=== PATIENT | male | born 1935 | race Caucasian/White ===

== ENCOUNTER 2025-05-16 08:21 | Inpatient (IN) | payer MEDICARE, OTHER ==
[~2025-05-16] VITALS: Ht 167.6 cm; Wt 84.1 kg
[2025-05-16] MEDS ORDERED: ECOT81TA5 PO (08:49)
[2025-05-16] MEDS ORDERED: POTA1TAB22 PO (08:49)
[2025-05-16] MEDS ORDERED: FURO40TA2 PO (08:49)
[2025-05-16] MEDS ORDERED: ATOR40TA75 PO (08:49)
[2025-05-16] MEDS ORDERED: FINA5TAB2 PO (08:49)
[2025-05-16] MEDS ORDERED: TAMS1CAP17 PO (08:49)
[2025-05-16] MEDS ORDERED: PREG50CA87 PO (08:49)
[2025-05-16] MEDS ORDERED: LOSA50TA28 PO (08:49)
[2025-05-16] MEDS ORDERED: PANT20TA6 PO (08:49)
[2025-05-16 09:32] LABS: BASO # 0.0 10^3/uL (0.0-0.2); BASO % 0.2 % (0.0-1.0); EOS # 0.0 10^3/uL (0.0-0.5); EOS % 0.2 % (0.0-3.0); LYMPH # 0.8 10^3/uL (1.5-5.0); LYMPH % 12.5 % (24.0-44.0); MONO # 0.1 10^3/uL (0.0-0.8); MONO % 1.3 % (2.0-8.0); NEUTROPHILS # 5.1 10^3/uL (1.5-8.5); NEUTROPHILS % 84.1 % (36.0-66.0); PLATELET COUNT, AUTOMATED 157 10^3/uL (150-450)
[2025-05-16] MEDS: ONDANSETRON 4MG 2ML VIAL IV ONE (09:44)
[2025-05-16] MEDS: MORPHINE 4 MG/ML 1 ML VIAL IV PRN ×2 (09:44→20:31)
[2025-05-16] MEDS: NS (Normal Saline) 0.9% 1,000 ML IV SCH (09:44)
[2025-05-16 09:47] LABS: INR 1.1
[2025-05-16 10:04] LABS: CALCIUM LEVEL 7.4 MG/DL (8.3-10.6); CARBON DIOXIDE LEVEL 26.0 MMOL/L (20-31); CHLORIDE LEVEL 105.0 MMOL/L (98-107); CREATININE FOR GFR 0.98 MG/DL (0.70-1.30); GLOMERULAR FILTRATION RATE 74.2 (>35); POTASSIUM SERUM 3.5 MMOL/L (3.5-5.1); SODIUM LEVEL 143.0 MMOL/L (136-145)
[2025-05-16] MEDS ORDERED: GLUC500C37 PO (10:59)
[2025-05-16] MEDS ORDERED: POTA-150 PO (10:59)
[2025-05-16] MEDS ORDERED: RISA150P SQ (10:59)
[2025-05-16] MEDS ORDERED: CALC1TAB63 PO (10:59)
[2025-05-16] MEDS ORDERED: VESI5TAB2 PO (10:59)
[2025-05-16] MEDS ORDERED: MELATAB3 PO (10:59)
[2025-05-16] MEDS ORDERED: MULTTAB61 PO (10:59)
[2025-05-16] MEDS ORDERED: HOME MED LIST COMPLETE! XX SCH (11:00)
[2025-05-16] MEDS: ENOXAPARIN 40 MG/0.4 ML SYRINGE (J1650 PER 10MG) SC ONE (13:41)
[2025-05-16] MEDS: FINASTERIDE 5 MG TAB PO SCH (13:42)
[2025-05-16] MEDS: FUROSEMIDE 40 MG TAB PO SCH (13:42)
[2025-05-16] MEDS: LOSARTAN 50 MG TABLET PO SCH (13:43)
[2025-05-16] MEDS: ATORVASTATIN 20 MG TAB PO SCH (13:43)
[2025-05-16] MEDS: PREGABALIN 50 MG CAP PO SCH (13:50)
[2025-05-16] MEDS: POTASSIUM CHLORIDE 10MEQ SR TABLET PO SCH (13:50)
[2025-05-16 16:00] VITALS: BP 141/76; TEMP 97.5; O2SAT 95
[2025-05-16] MEDS: ONDANSETRON 4MG 2ML VIAL IV PRN (16:56)
[2025-05-16] MEDS: ACETAMINOPHEN 500 MG TAB PO PRN (17:18)
[2025-05-16 20:15] VITALS: BP 140/75; TEMP 97.7; O2SAT 91
[2025-05-16] MEDS: TAMSULOSIN 0.4 MG CAP PO SCH (20:31)
[2025-05-16] MEDS: PANTOPRAZOLE 20 MG TAB PO SCH (20:31)
[2025-05-16] MEDS: NYSTATIN 100,000 UNITS/GM TOPICAL PWD 15 GM TOP SCH (20:34)
[2025-05-17 03:06] VITALS: BP 141/73; TEMP 97.5; O2SAT 93
[2025-05-17] MEDS ORDERED: PILL CUTTER 1 EACH XX PRN (03:55)
[2025-05-17] MEDS: HYDROmorphone 2 MG TAB PO ONE (03:58)
[2025-05-17 06:19] LABS: PLATELET COUNT, AUTOMATED 138 10^3/uL (150-450)
[2025-05-17 06:46] LABS: CALCIUM LEVEL 7.0 MG/DL (8.3-10.6); CARBON DIOXIDE LEVEL 28.0 MMOL/L (20-31); CHLORIDE LEVEL 105.0 MMOL/L (98-107); CREATININE FOR GFR 1.06 MG/DL (0.70-1.30); GLOMERULAR FILTRATION RATE 67.5 (>35); POTASSIUM SERUM 3.2 MMOL/L (3.5-5.1); SODIUM LEVEL 144.0 MMOL/L (136-145)
[2025-05-17] MEDS ORDERED: HYDROMORPHONE HCL 0.5 MG/0.5 ML SYRINGE IV PRN (08:10)
[2025-05-17] MEDS: KCL 40MEQ in NS 1000ML 1,000 ML IV SCH (08:18)
[2025-05-17] MEDS: HYDROMORPHONE HCL 0.5 MG/0.5 ML SYRINGE IV PRN (08:27)
[2025-05-17] MEDS: SOLIFENACIN 5 MG TAB PO SCH (09:00)
[2025-05-17] MEDS ORDERED: dexAMETHasone 4 MG/ML 1 ML VIAL As Ordered ONE (13:08)
[2025-05-17] MEDS ORDERED: LIDOCAINE 2% 100 MG/5 ML SDV (FOR ANES.) As Ordered ONE (13:08)
[2025-05-17] MEDS ORDERED: ONDANSETRON 4MG 2ML VIAL As Ordered ONE (13:08)
[2025-05-17] MEDS ORDERED: SUGAMMADEX SODIUM 500 MG/5 ML VIAL As Ordered ONE (13:23)
[2025-05-17] MEDS ORDERED: ROCURONIUM BROMIDE 50MG/5ML VIAL As Ordered ONE (13:23)
[2025-05-17] MEDS: TRANEXAMIC ACID 100 MG/ML 10ML VIAL As Ordered ONE (13:58)
[2025-05-17] MEDS ORDERED: HYDROmorphone HCL 2 MG/ML 1 ML VIAL As Ordered ONE (14:09)
[2025-05-17] MEDS: VANCOMYCIN 1000MG/20ML VIAL As Ordered ONE (14:17)
[2025-05-17] MEDS ORDERED: ACETAMINOPHEN 1000MG/100ML IV BAG As Ordered ONE (14:24)
[2025-05-17] MEDS: ONDANSETRON 4MG 2ML VIAL IV PRN (16:00)
[2025-05-17 17:00] VITALS: BP 140/76; TEMP 97; O2SAT 93
[2025-05-17 18:30] VITALS: BP 140/76; TEMP 97.3; O2SAT 92
[2025-05-17] MEDS: ceFAZolin SODIUM 2 GM in DEXTROSE 5% (D5W) ADV/MINI-BAG 50 ML IV SCH (21:26)
[2025-05-17 22:00] VITALS: BP 158/89; TEMP 97.5; O2SAT 94
[2025-05-18 04:33] VITALS: BP 131/66; TEMP 97.7; O2SAT 96
[2025-05-18 08:46] VITALS: BP 155/99
[2025-05-18 12:06] VITALS: BP 144/87; TEMP 97.9; O2SAT 92
[2025-05-18] MEDS: ENOXAPARIN 40 MG/0.4 ML SYRINGE (J1650 PER 10MG) SC ONE (12:58)
[2025-05-19] MEDS ORDERED: ENOXAPARIN 40 MG/0.4 ML SYRINGE (J1650 PER 10MG) SC SCH (09:00)
== END 2025-05-18 17:17 | DRG 522 ==
LOC: M ED 08:21 → EDBD 08:21 → M ED INP 11:55 → M MSPAV 16:00
PROVIDERS: ADMIT Internal Medicine; ATTEND Internal Medicine
PROC: 0SRS0J9 Replacement of Left Hip Joint, Femoral Surface with Synthetic Substitute, Cemented, Open Approach (ICD-10-PCS; principal; 2025-05-17 12:00)
DX: S72.002A Fracture of unspecified part of neck of left femur, initial encounter for closed fracture (principal); K50.90 Crohn's disease, unspecified, without complications; K21.9 Gastro-esophageal reflux disease without esophagitis; N40.1 Benign prostatic hyperplasia with lower urinary tract symptoms; I10 Essential (primary) hypertension; W19.XXXA Unspecified fall, initial encounter; Y92.9 Unspecified place or not applicable; Y93.9 Activity, unspecified; Z79.82 Long term (current) use of aspirin; Z79.899 Other long term (current) drug therapy; Z88.6 Allergy status to analgesic agent; Z96.611 Presence of right artificial shoulder joint; Z96.652 Presence of left artificial knee joint

== ENCOUNTER 2025-05-18 15:40 | Inpatient (IN) | payer MEDICARE, OTHER ==
[~2025-05-18] VITALS: Ht 167.6 cm; Wt 84.0 kg
[2025-05-18 15:28] VITALS: BP 130/61; TEMP 99.2
[~2025-05-18 15:40] MED LIST: ATOR40TA75 PO; CALC1TAB63 PO; ECOT81TA5 PO; FINA5TAB2 PO; FURO40TA2 PO; GLUC500C37 PO; LOSA50TA28 PO; MELATAB3 PO; MULTTAB61 PO; PANT20TA6 PO; POTA-150 PO; POTA1TAB22 PO; PREG50CA87 PO; RISA150P SQ; TAMS1CAP17 PO; VESI5TAB2 PO
[2025-05-18] MEDS ORDERED: BISACODYL 5 MG TAB PO PRN (15:50)
[2025-05-18] MEDS ORDERED: MAALOX 30 ML SUSP *UDC PO PRN (15:50)
[2025-05-18] MEDS ORDERED: ONDANSETRON 4MG ORAL DISINTEGRATING TAB PO PRN (15:50)
[2025-05-18] MEDS ORDERED: BISACODYL 10 MG SUPP PR PRN (15:50)
[2025-05-18] MEDS ORDERED: SIMETHICONE 80MG CHEW TAB PO PRN (15:50)
[2025-05-18] MEDS ORDERED: MOM 30 ML SUSPENSION UDC PO PRN (15:50)
[2025-05-18 17:28] VITALS: BP 130/61; TEMP 99.2; O2SAT 94
[2025-05-18 20:00] VITALS: BP 123/59; TEMP 98.6; O2SAT 91
[2025-05-18] MEDS: SENNA 8.6 MG TAB PO SCH (20:19)
[2025-05-18] MEDS: RAMELTEON 8 MG TAB PO SCH (20:19)
[2025-05-18] MEDS: TAMSULOSIN 0.4 MG CAP PO SCH (20:20)
[2025-05-18] MEDS: DOCUSATE SODIUM 100 MG CAPSULE PO SCH (20:20)
[2025-05-18] MEDS: PREGABALIN 50 MG CAP PO SCH (20:20)
[2025-05-18] MEDS: ACETAMINOPHEN 500 MG TAB PO SCH (20:20)
[2025-05-18] MEDS: NYSTATIN 100,000 UNITS/GM TOPICAL PWD 15 GM TOP SCH (20:21)
[2025-05-18] MEDS: PANTOPRAZOLE 20 MG TAB PO SCH (21:00)
[2025-05-19 04:00] VITALS: BP 119/62; TEMP 97.5; O2SAT 94
[2025-05-19] MEDS: MULTIVITAMINS/MINERALS THERAP 1 TAB PO SCH (08:10)
[2025-05-19] MEDS: FUROSEMIDE 40 MG TAB PO SCH (08:10)
[2025-05-19] MEDS: ATORVASTATIN 20 MG TAB PO SCH (08:10)
[2025-05-19] MEDS: LOSARTAN 50 MG TABLET PO SCH (08:11)
[2025-05-19] MEDS: ENOXAPARIN 40 MG/0.4 ML SYRINGE (J1650 PER 10MG) SC SCH (08:12)
[2025-05-19] MEDS: FINASTERIDE 5 MG TAB PO SCH (08:12)
[2025-05-19] MEDS: ASPIRIN 81 MG ENTERIC TABLET PO SCH (08:14)
[2025-05-19] MEDS: SOLIFENACIN 5 MG TAB PO SCH (08:14)
[2025-05-19] MEDS: POTASSIUM CHLORIDE 10MEQ SR TABLET PO SCH (08:14)
[2025-05-19 08:25] LABS: BASO # 0.0 10^3/uL (0.0-0.2); BASO % 0.3 % (0.0-1.0); EOS # 0.1 10^3/uL (0.0-0.5); EOS % 1.3 % (0.0-3.0); LYMPH # 0.9 10^3/uL (1.5-5.0); LYMPH % 10.9 % (24.0-44.0); MONO # 0.5 10^3/uL (0.0-0.8); MONO % 5.8 % (2.0-8.0); NEUTROPHILS # 6.5 10^3/uL (1.5-8.5); NEUTROPHILS % 81.1 % (36.0-66.0); PLATELET COUNT, AUTOMATED 115 10^3/uL (150-450)
[2025-05-19 08:26] VITALS: O2SAT 95
[2025-05-19 08:52] LABS: ALT/SGPT 17.0 U/L (7.0-40); AST/SGOT 43.0 U/L (<34); CALCIUM LEVEL 6.6 MG/DL (8.3-10.6); CARBON DIOXIDE LEVEL 28.0 MMOL/L (20-31); CHLORIDE LEVEL 103.0 MMOL/L (98-107); CREATININE FOR GFR 1.07 MG/DL (0.70-1.30); GLOMERULAR FILTRATION RATE 66.8 (>35); POTASSIUM SERUM 3.5 MMOL/L (3.5-5.1); SODIUM LEVEL 142.0 MMOL/L (136-145)
[2025-05-19 12:00] VITALS: BP 116/57; TEMP 98.4; O2SAT 98
[2025-05-19] MEDS: guaiFENesin ER TABLET 600 MG TAB PO ONE (14:13)
[2025-05-19] MEDS: BISACODYL 5 MG TAB PO ONE (14:13)
[2025-05-19 20:00] VITALS: BP 124/57; TEMP 97.5; O2SAT 93
[2025-05-20] VITALS: O2SAT 84
[2025-05-20 00:10] VITALS: O2SAT 93
[2025-05-20 04:00] VITALS: BP 107/55; TEMP 98.2; O2SAT 98
[2025-05-20] MEDS: guaiFENesin ER TABLET 600 MG TAB PO SCH (09:45)
[2025-05-20 12:00] VITALS: BP 158/58; TEMP 97.9; O2SAT 93
[2025-05-20 20:00] VITALS: BP 109/55; TEMP 98.9; O2SAT 93
[2025-05-21 04:00] VITALS: BP 115/65; TEMP 97; O2SAT 93
[2025-05-21 12:00] VITALS: BP 107/54; TEMP 98.2; O2SAT 95
[2025-05-21 20:00] VITALS: BP 108/59; TEMP 97.8; O2SAT 94
[2025-05-22 04:00] VITALS: BP 120/59; TEMP 97.1; O2SAT 98
[2025-05-22 12:30] VITALS: BP 130/64; TEMP 97.3; O2SAT 98
[2025-05-22 20:00] VITALS: BP 122/59; TEMP 97.8; O2SAT 98
[2025-05-23 04:00] VITALS: BP 155/66; TEMP 97.9; O2SAT 98
[2025-05-23 06:42] LABS: PLATELET COUNT, AUTOMATED 124 10^3/uL (150-450)
[2025-05-23 08:00] VITALS: BP 130/65
[2025-05-23 12:00] VITALS: BP 102/59; TEMP 98.1; O2SAT 73
[2025-05-23 20:00] VITALS: BP 113/58; TEMP 97.9; O2SAT 95
[2025-05-24 04:00] VITALS: BP 131/62; TEMP 98.3; O2SAT 93
[2025-05-24 12:00] VITALS: BP 108/56; TEMP 97.9; O2SAT 97
[2025-05-24] MEDS ORDERED: ACET-683 PO (13:37)
[2025-05-24] MEDS ORDERED: OXYC-517 PO (13:37)
[2025-05-24] MEDS ORDERED: ECOT81TA5 PO (13:37)
[2025-05-24] MEDS ORDERED: RAME8TAB2 PO (13:37)
[2025-05-24 20:00] VITALS: BP 149/65; TEMP 97.1; O2SAT 97
[2025-05-25 04:00] VITALS: BP 145/69; TEMP 97.3; O2SAT 96
[2025-05-25 12:00] VITALS: BP 115/56; TEMP 97.5; O2SAT 96
[2025-05-25 20:00] VITALS: BP 118/62; TEMP 97.9; O2SAT 96
[2025-05-26 04:00] VITALS: BP 128/66; TEMP 97.4; O2SAT 96
[2025-05-26 08:07] VITALS: BP 130/59
== END 2025-05-26 10:15 | disposition home health service (06) | DRG 560 ==
LOC: M PM&R 15:40 → UNDOADMIN 15:40 → M PM&R 17:28 → UNDODISIN 05-26 10:15
PROVIDERS: ADMIT Physical Medicine & Rehabilitation; ATTEND Physical Medicine & Rehabilitation
DX: S72.002D Fracture of unspecified part of neck of left femur, subsequent encounter for closed fracture with routine healing (principal); K50.90 Crohn's disease, unspecified, without complications; K21.9 Gastro-esophageal reflux disease without esophagitis; Z96.642 Presence of left artificial hip joint; I10 Essential (primary) hypertension; K59.00 Constipation, unspecified; Z74.1 Need for assistance with personal care; R21 Rash and other nonspecific skin eruption; D64.9 Anemia, unspecified; Z74.09 Other reduced mobility; N40.1 Benign prostatic hyperplasia with lower urinary tract symptoms; Z79.82 Long term (current) use of aspirin; Z79.899 Other long term (current) drug therapy; Z88.6 Allergy status to analgesic agent